=== PATIENT | female | born 1940 | race Caucasian/White ===

== ENCOUNTER → 2016-09-15 | Outpatient (CLI) | payer MEDICARE, OTHER ==
[2016-09-15 11:45] LABS: MEAN CORPUSCULAR HEMOGLOBIN 33.5 pg (27.0-33.0); MEAN CORPUSCULAR HGB CONC 35.5 g/dl (32.0-36.5); MEAN CORPUSCULAR VOLUME 94.3 fl (80.0-96.0); RED CELL DISTRIBUTION WIDTH 12.6 % (11.5-14.5); WHITE BLOOD COUNT 5.9 K/mm3 (4.0-10.0)
[2016-09-15 12:30] LABS: ALBUMIN 3.9 GM/DL (3.2-5.2); ALBUMIN/GLOBULIN RATIO 1.26 (1.00-1.93); ALKALINE PHOSPHATASE 79 U/L (45-117); ALT/SGPT 36 U/L (12-78); ANION GAP 7 MEQ/L (8-16); AST/SGOT 19 U/L (15-37); BILIRUBIN,TOTAL 0.4 MG/DL (0.2-1.0); BLOOD UREA NITROGEN 16 MG/DL (7-18); CALCIUM LEVEL 8.9 MG/DL (8.8-10.2); CARBON DIOXIDE LEVEL 30 MEQ/L (21-32); CHLORIDE LEVEL 104 MEQ/L (98-107); CHOLESTEROL LEVEL 308 MG/DL (<200); CREATININE FOR GFR 0.76 MG/DL (0.55-1.02); GLOMERULAR FILTRATION RATE > 60.0 (>39); GLUCOSE, FASTING 98 MG/DL (83-110); SODIUM LEVEL 141 MEQ/L (136-145); TRIGLYCERIDES LEVEL 393 MG/DL (<150)
== END ==
LOC: M LAB 11:02
PROVIDERS: ATTEND Physician Assistant
DX: I25.10 Atherosclerotic heart disease of native coronary artery without angina pectoris (principal); E78.2 Mixed hyperlipidemia

== ENCOUNTER → 2016-09-25 | Outpatient (CLI) | payer MEDICARE, OTHER ==
--- NOTE | 2016-09-25 20:17 | REP ---
Bilateral carotid artery duplex ultrasound: Peak flow velocity analysis: RIGHT LEFT ICA. Peak flow velocity cm/sec 72 77 ICA Diastolic flow velocity cm/sec 96 33 ICA/CCA Ratio 1.0 0.85 There is shallow atheromatous plaque in the common carotid arteries bilaterally. No atheromatous plaque is identified in the bulbs, external carotid arteries or internal carotid arteries on the right or the left. Peak flow velocities are normal bilaterally. Findings indicate less than 50 percent narrowing bilaterally. There is no significant stenosis on the right on the left. There is antegrade flow in the vertebral arteries bilaterally. There is no significant interval change from the prior study of 04/18/2010. Signed by Morgan Contreras MD 09/25/2016 02:53 P
== END ==
LOC: M RAD 13:10
PROVIDERS: ATTEND Physician Assistant
DX: I65.23 Occlusion and stenosis of bilateral carotid arteries (principal)